=== PATIENT | female | born 1945 | race Caucasian/White ===

== ENCOUNTER 2018-08-12 07:08 | Day surgery (SDC) | payer MEDICARE, OTHER ==
[~2018-08-12] VITALS: Ht 160 cm; Wt 74.7 kg
[~2018-08-12 07:08] MED LIST: AMLO5 PO; ATEN50 PO; ATOR40TA PO; Aldactone50 MG PO; FURO40 PO; LEVSOD50 PO; Norco 5-325 Ta1 EACH PO; PANT40 PO; Zyloprim100 MG PO
== END 2018-08-12 09:44 | disposition home or self-care (01) ==
LOC: ORSCSDS 07:08
PROVIDERS: Internal Medicine Gastroenterology
PROC: 0DBM8ZX Excision of Descending Colon, Via Natural or Artificial Opening Endoscopic, Diagnostic (ICD-10-PCS; principal; 2018-08-12 08:30)
PROC: 0DBN8ZX Excision of Sigmoid Colon, Via Natural or Artificial Opening Endoscopic, Diagnostic (ICD-10-PCS; principal; 2018-08-12 08:30)
DX: Z12.11 Encounter for screening for malignant neoplasm of colon (principal); D12.4 Benign neoplasm of descending colon; D12.5 Benign neoplasm of sigmoid colon; I10 Essential (primary) hypertension; E03.9 Hypothyroidism, unspecified; E78.5 Hyperlipidemia, unspecified; K21.9 Gastro-esophageal reflux disease without esophagitis; Z79.899 Other long term (current) drug therapy; Z79.82 Long term (current) use of aspirin
CPT/HCPCS: 88305; J0330; J0461; J2405; J2704; J7120

== ENCOUNTER 2022-10-22 07:42 | Day surgery (SDC) | payer MEDICARE, OTHER ==
[~2022-10-22] VITALS: Ht 160 cm; Wt 76.8 kg
[2022-10-22] VITALS (17 sets, daily range): BP systolic 103–137; BP diastolic 63–106
[~2022-10-22 07:42] MED LIST changes: +COLRITE PO; +ELIQUIS5 M2 PO; +IRON PO; +LEVSOD100 PO; -LEVSOD50 PO; +MERIBIN5 MG PO; +METO50ER PO; +OMEGA-3 + VITA200 ML PO; +Spironolactone50 MG PO; +Vitamin D1000 UNI1 PO
[2022-10-22] MEDS ORDERED: SPIR50 PO (08:14)
--- NOTE | 2022-10-22 13:12 | NUR ---
PT ARRIVED TO THE ROOM AT 1250. PT IS ALERT AND ORIENTED. PT DENIES PAIN. SHE HAD SPINAL ANESTHESIA AND IS STILL UNABLE TO MOVE BLE. L KNEE INCISION SITE IS WNL. PT IS ON RA, RESP RATE AND EFFORT IS EVEN AND UNLABORED. FAMILY AT BEDSIDE FOR SUPPORT. PT EDUCATED TO USE THE CALL LIGHT AND IT IS WITHIN REACH.
--- NOTE | 2022-10-22 17:48 | NUR ---
SHIFT SUMMARY PT IS POD#0 FROM L TKA WITH DR. SANCHEZ. PAIN MANAGED WITH TYLENOL AND TORADOL. PT WORKED WITH THERAPY AND IS A 1 PERSON ASSIST WHEN OOB. PT TOLERATING PO. SHE HAS BEEN ABLE TO VOID. PT IS SITTING IN THE RECLINER AT THIS TIME, CALL LIGHT WITHIN REACH.
[2022-10-23 04:22] VITALS: BP 110/76
[2022-10-23 05:02] LABS: BASOPHILS ABSOLUTE AUTO 0.02 K/mm3 (0.00-0.23); BASOPHILS PERCENT AUTO 0 % (0-2); EOSINOPHILS ABSOLUTE AUTO 0.01 K/mm3 (0.00-0.68); EOSINOPHILS PERCENT AUTO 0 % (0-6); Hematocrit 35.9 % (33.0-51.0); Hemoglobin 12.2 g/dL (11.5-16.0); IMMATURE GRAN ABSOLUTE AUTO 0.05 K/mm3 (0.00-0.10); IMMATURE GRAN PERCENT AUTO 1 % (0-1); LYMPHOCYTES ABSOLUTE AUTO 1.17 K/mm3 (0.84-5.20); LYMPHOCYTES PERCENT AUTO 11 % (21-46); MONOCYTES ABSOLUTE AUTO 0.97 K/mm3 (0.16-1.47); MONOCYTES PERCENT AUTO 9 % (4-13); Mean Corpuscular HGB 33.1 pg (26.0-34.0); Mean Corpuscular Volume 97 fL (80-100); NEUTROPHILS ABSOLUTE AUTO 8.46 K/mm3 (1.96-9.15); NEUTROPHILS PERCENT AUTO 79 % (41-73); Platelet Count 196 K/mm3 (150-400); RDW Coefficient Variation 13.7 % (11.7-14.2); RDW Standard Deviation 48.5 fL (35.1-46.3); Red Blood Cell Count 3.69 M/mm3 (3.80-5.20); White Blood Cell Count 10.68 K/mm3 (4.00-11.30)
[2022-10-23 05:24] LABS: Bun/Creatinine Ratio 30.6 (12.0-20.0); Calcium, Blood 8.8 mg/dL (8.5-10.1); Creatinine, Blood 0.82 mg/dL (0.40-1.00); Potassium, Blood 4.3 mmol/L (3.5-5.5)
--- NOTE | 2022-10-23 05:44 | NUR ---
SHIFT SUMMARY S/P R TKA, AQUACEL AND ABDIEL WRAP TO KNEE C/D/I. ICE IN PLACE, SCD'S ON. PATIENT IS 1 ASSIST TO BATHROOM AND VOIDING WELL. TOLERATING PO INTAKE. PLAN FOR PT IN AM VSS, CALL LIGHT IN REACH.
[2022-10-23 07:39] VITALS: BP 125/99
[2022-10-23 07:40] VITALS: BP 127/73
[2022-10-23] MEDS ORDERED: Percocet 5-3251 EACH PO (08:23)
--- NOTE | 2022-10-23 08:56 | NUR ---
0710- bedside report given from previous shift rn; pt lying in bed, awake, a/o x 4, pleasant. pt reports pain at 05/03, provided analgesia per mar in preparation for PT/OT this morning. bed in lowest position, bed rails up x 2, call light within reach [id number] in with pt 0850-family visiting pt
--- NOTE | 2022-10-23 09:00 | NUR ---
0710-bedside report given with previous shift rn. pt up in chair, cryo therapy in place, a/o x 4, pleasant. call light within reach [id number] Asencio rounding on pt; family in room 0830-pt eating breakfast in chair
--- NOTE | 2022-10-23 11:06 | NUR ---
pt and family provided with discharge instructions, printed materials, already have prescriptions already. pt's belongings transported to awaiting vehicle by spouse; pt transported to vehicle via wheelchair.
== END 2022-10-23 10:49 | disposition home or self-care (01) ==
LOC: ORSCMMR 07:42 → ORD 09:15 → SURS 12:39 → ORSCMMR 10-23 10:49
PROVIDERS: Orthopaedic Surgery
PROC: 0SRD0JA Replacement of Left Knee Joint with Synthetic Substitute, Uncemented, Open Approach (ICD-10-PCS; principal; 2022-10-22 09:15)
DX: M17.12 Unilateral primary osteoarthritis, left knee (principal); I10 Essential (primary) hypertension; E03.9 Hypothyroidism, unspecified; I48.91 Unspecified atrial fibrillation; Z79.82 Long term (current) use of aspirin; Z79.899 Other long term (current) drug therapy; Z79.01 Long term (current) use of anticoagulants
CPT/HCPCS: 36415; 73560-LT; 80048; 85025; 97110; 97116; 97162; A9270; C1776; J0171; J0690; J0735; J1100; J1885; J2250; J2405; J2704; J2795; J3010; J7120

== ENCOUNTER 2023-10-24 06:08 | Day surgery (SDC) | payer MEDICARE, OTHER ==
[~2023-10-24] VITALS: Ht 160 cm; Wt 79.7 kg
[~2023-10-24 06:08] MED LIST changes: +Percocet 5-3251 EACH PO; +SPIR50 PO
[2023-10-24] MEDS ORDERED: Tranexamic Acid 100 ML IV ONE ×2 (06:29→09:59)
[2023-10-24] MEDS ORDERED: CeFAZolin Sodium 2,000 MG VIAL ONE (06:33)
[2023-10-24] MEDS ORDERED: Lactated Ringer's 1,000 ML IV ONE ×3 (06:33→10:16)
[2023-10-24] MEDS ORDERED: NS 50 ML IV ONE (06:33)
[2023-10-24] MEDS ORDERED: Acetaminophen 500 MG Tab ONE (06:33)
[2023-10-24] MEDS ORDERED: OxyCODONE HCL 10 MG TABCR ONE (06:33)
[2023-10-24] MEDS ORDERED: Ropivacaine 0.5% HCl/Pf 123.125 MG,EPINEPHrine HCL 0.25 MG,Ketorolac Tromethamine 15 MG... INFIL SCH (07:00)
[2023-10-24] MEDS ORDERED: Bupivacaine 0.5% HCl 5 MG/ML 30MLVIAL ONE (07:06)
[2023-10-24] MEDS ORDERED: Dexamethasone Sod Phos 10 MG/ML 1ML VIAL ONE (07:07)
[2023-10-24] MEDS ORDERED: Tranexamic Acid 100 ML IV SCH (07:35)
[2023-10-24] MEDS ORDERED: CeFAZolin Sodium 2,000 MG in NS 100 ML IV SCH (07:35)
[2023-10-24] MEDS ORDERED: OxyCODONE HCL 10 MG TABCR PO SCH (07:40)
[2023-10-24] MEDS ORDERED: Acetaminophen 500 MG Tab PO SCH (07:40)
[2023-10-24] MEDS ORDERED: FentaNYL Citrate 50 MCG/ML 2 ML Injection ONE ×2 (07:47→09:49)
[2023-10-24] MEDS ORDERED: propofoL 20 ML IV ONE (07:47)
--- NOTE | 2023-10-24 07:47 | NUR ---
10/24/23 0747 Kisha Presley ROOM DELAYED DUT TO DR. JEAN BAPTISTE NOT WANTING TO USE THE "OLD" SONOSIGHT AND WANTED TO WAIT FOR ANOTHER PROVIDER TO FINISH USING THE "NEW" MACHINE. ADVISED THIS RN IT WAS NOT NECESSARY TO ENTER PATIENT INFORMATION INTO THE SONOSIGHT DUE TO WAITING TO SPEED THE CASE ALONG.
[2023-10-24] MEDS ORDERED: Ondansetron HCl 2 MG / ML 2ML Vial ONE (07:50)
[2023-10-24] MEDS ORDERED: Rocuronium Bromide 10 MG/ML 5ML Injection IV ONE (07:50)
[2023-10-24] MEDS ORDERED: Ketorolac Tromethamine 30mg Vial ONE (07:50)
[2023-10-24] MEDS ORDERED: Chlorhexidine Mouth Care 15 ML UDC MT SCH (08:00)
[2023-10-24] MEDS ORDERED: Sugammadex Sodium 200 MG/2ML SDV (100 MG/ML) ONE (09:54)
--- NOTE | 2023-10-24 10:15 | NUR ---
10/24/23 1015 Shanell Rebolledo 50mlOF JOINT COCKTAIL GIVEN AT END OF CASE.
[2023-10-24 10:40] VITALS: BP 119/60
--- NOTE | 2023-10-24 11:17 | NUR ---
10/24/23 1117 FernandezKisha ALEXEI AND DAUGHTER NOE IN ROOM WITH PATIENT. NO QUESTIONS OR CONCERNS. REPORT GIVEN TO [facility] [place] TO FINISH 2ND DOSE OF TXA IN STEP DOWN PER ORDER
== END 2023-10-24 12:25 | disposition home or self-care (01) ==
LOC: ORSCSDS 06:08
PROVIDERS: Orthopaedic Surgery
PROC: 0RRJ00Z Replacement of Right Shoulder Joint with Reverse Ball and Socket Synthetic Substitute, Open Approach (ICD-10-PCS; principal; 2023-10-24 07:30)
DX: M12.811 Other specific arthropathies, not elsewhere classified, right shoulder (principal); I10 Essential (primary) hypertension; I48.91 Unspecified atrial fibrillation; Z79.01 Long term (current) use of anticoagulants; E03.9 Hypothyroidism, unspecified; K21.9 Gastro-esophageal reflux disease without esophagitis; Z79.899 Other long term (current) drug therapy
CPT/HCPCS: 73030; A9270; C1713; C1776; J0171; J0690; J0735; J1100; J1885; J2405; J2704; J2795; J3010; J7120

== ENCOUNTER 2024-01-15 05:59 | Day surgery (SDC) | payer MEDICARE, OTHER ==
[2024-01-15] VITALS (15 sets, daily range): BP systolic 102–158; BP diastolic 62–109
[~2024-01-15] VITALS: Ht 157.5 cm; Wt 82.0 kg
[2024-01-15] MEDS ORDERED: Chlorhexidine Mouth Care 15 ML UDC MT SCH (06:30)
[2024-01-15] MEDS ORDERED: Tranexamic Acid 100 ML IV SCH ×2 (06:30→12:05)
[2024-01-15] MEDS ORDERED: Ropivacaine 0.5% HCl/Pf 123.125 MG,EPINEPHrine HCL 0.25 MG,Ketorolac Tromethamine 15 MG... INFIL SCH (06:30)
[2024-01-15] MEDS ORDERED: Lactated Ringer's 1,000 ML IV SCH ×2 (06:30→11:05)
[2024-01-15] MEDS ORDERED: CeFAZolin Sodium 2,000 MG in NS 100 ML IV SCH ×2 (06:30→16:00)
[2024-01-15] MEDS ORDERED: OxyCODONE HCL 10 MG TABCR PO SCH (06:30)
[2024-01-15] MEDS ORDERED: Acetaminophen 500 MG Tab PO SCH ×2 (06:30→16:00)
[2024-01-15] MEDS ORDERED: CeFAZolin Sodium 2,000 MG VIAL ONE (07:06)
--- NOTE | 2024-01-15 07:19 | NUR ---
History, Chart, Medications and Allergies reviewed before start of procedure. Patient confirms NPO status and agrees with scheduled surgery.
[2024-01-15] MEDS ORDERED: Midazolam HCl 1MG / ML 2ML Vial ONE (07:33)
--- NOTE | 2024-01-15 07:58 | NUR ---
IV ACCESS ESTABLISHED WITH THREE DIFFERENT RNs ATTEMPTING WITH A TOTAL OF 6 POKES. ALL ATTEMPTS TO RLE.
--- NOTE | 2024-01-15 08:04 | NUR ---
TIME OUT FOR INTERSCALENE BLOCK TO LEFT SIDE.
--- NOTE | 2024-01-15 08:19 | NUR ---
INTERSCALENE BLOCK START TIME 0812. END TIME 0816.PATIENT TOLERATED WELL. DR MCCARTNEY MONITORED VS T/O.
[2024-01-15] MEDS ORDERED: EpiNEPhrine 1 MG/1 ML 1ML Vial ONE (08:20)
[2024-01-15] MEDS ORDERED: Dexamethasone Sod Phos 10 MG/ML 1ML VIAL ONE (08:20)
[2024-01-15] MEDS ORDERED: Bupivacaine 0.5% HCl 5 MG/ML 30MLVIAL ONE (08:20)
[2024-01-15] MEDS ORDERED: propofoL 20 ML IV ONE (08:21)
[2024-01-15] MEDS ORDERED: Rocuronium Bromide 10 MG/ML 5ML Injection IV ONE ×2 (08:53→09:59)
[2024-01-15] MEDS ORDERED: FentaNYL Citrate 50 MCG/ML 2 ML Injection ONE (09:19)
[2024-01-15] MEDS ORDERED: Ondansetron HCl 2 MG / ML 2ML Vial ONE (10:40)
[2024-01-15] MEDS ORDERED: Sugammadex Sodium 200 MG/2ML SDV (100 MG/ML) ONE (10:42)
[2024-01-15] MEDS ORDERED: OxyCODONE HCL 5 MG TAB PO PRN ×2 (11:05)
[2024-01-15] MEDS ORDERED: Prochlorperazine Edisylate 10 mg Vial IV PRN (11:05)
[2024-01-15] MEDS ORDERED: DiphenhydrAMINE HCL 25 MG Cap PO PRN (11:10)
[2024-01-15] MEDS ORDERED: FLU VACC TS2024-25(6MOS UP)/PF 45 MCG/0.5 ML SYRINGE IM PRN (11:10)
[2024-01-15] MEDS ORDERED: Metoclopramide HCl 5MG / ML 2ML Vial IV PRN (11:10)
[2024-01-15] MEDS ORDERED: Ondansetron HCl 2 MG / ML 2ML Vial IV PRN (11:10)
[2024-01-15] MEDS ORDERED: Magnesium Hydroxide Conc 10 ML UDC PO PRN (11:10)
[2024-01-15] MEDS ORDERED: Promethazine HCl 25 MG Tab PO PRN (11:15)
[2024-01-15] MEDS ORDERED: Bisacodyl 10 MG Supp PR PRN (11:15)
[2024-01-15] MEDS ORDERED: HYDROmorphone HCl/Pf 1MG SYR IV PRN (11:15)
[2024-01-15] MEDS ORDERED: Ketorolac Tromethamine 15mg Vial IV SCH (12:02)
--- NOTE | 2024-01-15 12:36 | NUR ---
ARRIVAL TO UNIT PATIENT TRANSFERRED TO UNIT FROM PACU AT APPROX 1215. PATIENT ALERT AND ORIENTED X4. COMMUNICATING NEEDS EFFECTIVELY. VSS. TITRATED FROM 2L VIA NC TO ROOM AIR, SATs >90%. RR EVEN, UNLABORED. S/P L TSA W/ BLOCK - DENIES SENSATION TO LUE. PULSE STRONG, CAP REFILL <2 SECONDS. PINK IN COLOR. IMMOBILIZER AND COOLING DEVICE ON. AQUACEL DRESSING C/D/I. TOLERATING SMALL BITES OF FOOD - IVF INFUSING PER EMAR. CALL LIGHT IN REACH. FAMILY AT BEDSIDE.
--- NOTE | 2024-01-15 18:04 | NUR ---
SHIFT SUMMARY NO ACUTE EVENTS SINCE PREVIOUS DOCUMENTATION. VSS. NO SENSATION TO L SHOULDER - LUE PINK, STRONG PULSE. CAP REFILL <2 SECONDS. DENIES PAIN. UNABLE TO WORK WITH PHYSICAL THERAPY DUE TO LACK OF SENSATION - PLAN TO WORK WITH THERAPY TOMORROW MORNING. AMBULATING ONE PERSON ASSIST WITH GB. VOIDING. CURRENTLY SITTING IN RECLINER. COOLING DEVICE IN PLACE TO LUE. CALL LIGHT IN REACH. WILL CONTINUE TO MONITOR AND REPORT TO ONCOMING.
[2024-01-15] MEDS ORDERED: Docusate Sodium 100 MG Cap PO SCH (21:00)
[2024-01-16 00:06] VITALS: BP 105/73
[2024-01-16 04:26] VITALS: BP 120/79
--- NOTE | 2024-01-16 04:46 | NUR ---
SHIFT SUMMARY AIRAM WAS ALERT AND FULLY ORIENTED ON ASSESMENT. PT BLOCK TAKING A LONG TIME TO WEAR OFF, SENSATION HAS NOT RETURNED BUT PT ABILITY TO MOVE HANDS AND FINGERS IS MUCH IMPROVED FROM START OF SHIFT. NO ACUTE EVENTS. NO NOTED CHANGES TO PT CONDITION. NO PAIN REPORTED. PT RESTING IN BED WITH CALL LIGHT IN REACH.
[2024-01-16 04:47] LABS: BASOPHILS ABSOLUTE AUTO 0.02 K/mm3 (0.00-0.23); BASOPHILS PERCENT AUTO 0 % (0-2); EOSINOPHILS PERCENT AUTO 0 % (0-6); Hematocrit 34.3 % (33.0-51.0); Hemoglobin 11.7 g/dL (11.5-16.0); IMMATURE GRAN ABSOLUTE AUTO 0.06 K/mm3 (0.00-0.10); IMMATURE GRAN PERCENT AUTO 1 % (0-1); LYMPHOCYTES ABSOLUTE AUTO 1.23 K/mm3 (0.84-5.20); LYMPHOCYTES PERCENT AUTO 11 % (21-46); MONOCYTES ABSOLUTE AUTO 1.01 K/mm3 (0.16-1.47); MONOCYTES PERCENT AUTO 9 % (4-13); Mean Corpuscular HGB 33.1 pg (26.0-34.0); Mean Corpuscular HGB Conc 34.1 g/dL (31.5-36.5); Mean Corpuscular Volume 97 fL (80-100); Mean Platelet Volume 10.1 fL (9.1-12.4); NEUTROPHILS ABSOLUTE AUTO 8.72 K/mm3 (1.96-9.15); NEUTROPHILS PERCENT AUTO 79 % (41-73); Platelet Count 177 K/mm3 (150-400); RDW Coefficient Variation 14.9 % (11.7-14.2); Red Blood Cell Count 3.54 M/mm3 (3.80-5.20); White Blood Cell Count 11.04 K/mm3 (4.00-11.30)
[2024-01-16 05:15] LABS: Bun/Creatinine Ratio 30.9 (12.0-20.0); Calcium, Blood 8.5 mg/dL (8.5-10.1); Creatinine, Blood 0.91 mg/dL (0.40-1.00); Potassium, Blood 4.2 mmol/L (3.5-5.5)
[2024-01-16 07:29] VITALS: BP 124/84
[2024-01-16] MEDS ORDERED: Apixaban 5 MG Tab PO SCH (09:00)
[2024-01-16] MEDS ORDERED: FEROSUL325 M1 PO (11:38)
[2024-01-16] MEDS ORDERED: DOCU100 PO (11:39)
--- NOTE | 2024-01-16 11:45 | NUR ---
Pt. is sitting up in a chair. Pt. is dressed and awaiting discharge when she welcomes my visit. Pt. is pleasant. Spouse is present. Facilitated a life review and in the processed rapport is established. Considered matters of maria eugenia and belief. Pt. displayed evidence of casey and being encouraged. Prayed with the Pt. Pt. varbalised gratitude fo rthe spiritual care visit.
--- NOTE | 2024-01-16 12:15 | NUR ---
DISCHARGE SUMMARY POD 1 L REVERSE TSA. VSS. TOLERATING ORALS. VOIDING IND. PT REPORTS PAIN TOLERABLE, REMAINS NUMB @ APPROX C5, DENIES TINGLING. IMMOBILIZER TO LUE IN USE, NWB, AQUACEL DRESSING C/D/I. CLEARED PHYSCIAL AND OCCUPATIONAL THERAPY. IV REMOVED. DISCHARGE INSTRUCTIONS GIVEN, PT VERBALIZES UNDERSTANDING. ADDITIONAL DRESINGS, POLAR PACK, AND PERSONAL BELONGINGS WITH PATIENT. D/C'd VIA WHEELCHAIR TO POV, DRIVEN BY SPOUSE.
== END 2024-01-16 12:17 | disposition home or self-care (01) ==
LOC: ORSCMMR 05:59 → ORD 07:30 → ORSCMMR 07:30 → SURS 12:08 → ORSCMMR 01-16 12:17
PROVIDERS: Orthopaedic Surgery
PROC: 0RRK00Z Replacement of Left Shoulder Joint with Reverse Ball and Socket Synthetic Substitute, Open Approach (ICD-10-PCS; principal; 2024-01-15 07:30)
DX: M12.812 Other specific arthropathies, not elsewhere classified, left shoulder (principal); I48.91 Unspecified atrial fibrillation; I10 Essential (primary) hypertension; E78.5 Hyperlipidemia, unspecified; E03.9 Hypothyroidism, unspecified; Z79.01 Long term (current) use of anticoagulants; Z79.899 Other long term (current) drug therapy
CPT/HCPCS: 36415; 73030; 80048; 83735; 85025; 94760; 97110; 97162; 97165; 97530; 97535; A9270; C1713; C1776; J0171; J0690; J0735; J1100; J1885; J2250; J2405; J2704; J2795; J3010; J7120

== ENCOUNTER 2024-05-20 08:51 | Day surgery (SDC) | payer MEDICARE, OTHER ==
[~2024-05-20] VITALS: Ht 157.5 cm; Wt 82.1 kg
[~2024-05-20 08:51] MED LIST changes: +DOCU100 PO; +FEROSUL325 M1 PO; +Lactated Ringer's 1,000 ML IV ONE
[2024-05-20] MEDS ORDERED: propofoL 50 ML IV ONE (09:12)
[2024-05-20] MEDS ORDERED: Lactated Ringer's 1,000 ML IV ONE (09:39)
[2024-05-20 11:19] VITALS: BP 132/91
== END 2024-05-20 11:31 | disposition home or self-care (01) ==
LOC: ORSCSDS 08:51
PROVIDERS: Internal Medicine Gastroenterology
PROC: 0DBM8ZX Excision of Descending Colon, Via Natural or Artificial Opening Endoscopic, Diagnostic (ICD-10-PCS; principal; 2024-05-20 10:15)
DX: Z12.11 Encounter for screening for malignant neoplasm of colon (principal); Z86.0101 Personal history of adenomatous and serrated colon polyps; Z80.0 Family history of malignant neoplasm of digestive organs; K63.5 Polyp of colon; K57.30 Diverticulosis of large intestine without perforation or abscess without bleeding; K64.8 Other hemorrhoids; I10 Essential (primary) hypertension; E03.9 Hypothyroidism, unspecified; Z79.01 Long term (current) use of anticoagulants; Z79.899 Other long term (current) drug therapy
CPT/HCPCS: 88305; J2704; J7120

== ENCOUNTER 2024-09-27 08:07 | Day surgery (SDC) | payer MEDICARE, OTHER ==
[~2024-09-27] VITALS: Ht 157.5 cm; Wt 81.5 kg
[~2024-09-27 08:07] MED LIST changes: -Lactated Ringer's 1,000 ML IV ONE
[2024-09-27 10:35] VITALS: BP 132/80
== END 2024-09-27 10:15 | disposition home or self-care (01) ==
LOC: ORSCSDS 08:07
PROVIDERS: Specialist
PROC: 0DBP8ZX Excision of Rectum, Via Natural or Artificial Opening Endoscopic, Diagnostic (ICD-10-PCS; principal; 2024-09-27 09:30)
DX: Z09 Encounter for follow-up examination after completed treatment for conditions other than malignant neoplasm (principal); K62.1 Rectal polyp; K64.8 Other hemorrhoids; K57.30 Diverticulosis of large intestine without perforation or abscess without bleeding; Z86.0101 Personal history of adenomatous and serrated colon polyps; Z80.0 Family history of malignant neoplasm of digestive organs; I48.91 Unspecified atrial fibrillation; E78.5 Hyperlipidemia, unspecified; I10 Essential (primary) hypertension; K21.9 Gastro-esophageal reflux disease without esophagitis; Z79.01 Long term (current) use of anticoagulants; Z79.899 Other long term (current) drug therapy
CPT/HCPCS: 88305; J2704; J7120